=== PATIENT | female | born 1985 | race African-American/Black ===

== ENCOUNTER 2019-09-24 17:01 | Emergency (ER) | payer SELFPAY ==
[2019-09-24 17:06] VITALS: BP 139/88
[2019-09-24] MEDS ORDERED: ACETAMINOPHEN 325 MG TABLET PO ONE (17:30)
--- NOTE | 2019-09-24 17:30 | ER Document Report ---
HPI - HPI Time Seen by Provider: 09/24/19 17:19 Pain Level: 4 Context: Patient is a 33-year-old female who presents the emergency department with a chief complaint of right thigh pain. Patient reports this morning while she was getting ready for work and walking around her house she developed right thigh pain. Patient reports it feels like it is deep within and it feels like something needs to pop. Patient reports she did not fall or injure herself. Patient denies a history of blood clots. Patient denies swelling to the right thigh, redness to the thigh or any other abnormality. Patient states she did go to work and has been standing on her feet all day which does seem to make the pain worse. Patient denies back pain, loss of bowel or bladder or numbness or tingling to lower extremities. Past Medical History - General Information source: Patient - Social History Smoking Status: Current Every Day Smoker Chew tobacco use (# tins/day): No Frequency of alcohol use: Social Drug Abuse: None Lives with: Family Family History: None Patient has suicidal ideation: No Patient has homicidal ideation: No - Past Medical History Cardiac Medical History: Reports: None Pulmonary Medical History: Reports: None EENT Medical History: Reports: None Neurological Medical History: Reports: None Endocrine Medical History: Reports: None Renal/ Medical History: Reports: None Malignancy Medical History: Reports: None GI Medical History: Reports: None Musculoskeletal Medical History: Reports None Skin Medical History: Reports None Psychiatric Medical History: Reports: None Traumatic Medical History: Reports: None Infectious Medical History: Reports: None Surgical Hx: Negative Vertical Provider Document - CONSTITUTIONAL Agree With Documented VS: Yes Exam Limitations: No Limitations General Appearance: No Apparent Distress - HEENT HEENT: Atraumatic, Normal ENT Exam, Normocephalic, PERRLA - NECK Neck: Normal Inspection - RESPIRATORY Respiratory: Breath Sounds Normal, No Respiratory Distress - CARDIOVASCULAR Cardiovascular: Regular Rate, Regular Rhythm - GI/ABDOMEN Gastrointestinal: Abdomen Soft, Abdomen Non-Tender, Normal Bowel Sounds - MUSCULOSKELETAL/EXTREMETIES Notes: Patient was brought into a private room and undressed in a gown for appropriate physical examination. Patient does not have any point tenderness to the right hip, right thigh, right knee or right lower leg. There is no ecchymosis, edema, erythema noted to the right thigh when compared to the left thigh. There is no open wound. - NEURO Level of Consciousness: Awake, Alert, Appropriate - DERM Integumentary: Warm, Dry, No Rash Course - Re-evaluation Re-evalutation: 09/24/19 17:30 Patient to be brought back to a room for evaluation of her lower extremities. 09/24/19 18:01 Patient's physical examination was reassuring. Patient did not have any significant swelling, erythema or ecchymosis noted to the right thigh. Patient continues to deny trauma or fall. Patient reports the only thing she can say is that she has had similar pain when she was diagnosed with sciatica when she was . Patient reports today she has not taken anything for her discomfort. Patient does have the Mirena implanted that is greater than 5 years old but denies recent car rides surgeries or significant risk factors for blood clot. I did inform the patient that this time I do not believe a venous Doppler or x-ray is necessary. Patient in agreement with discharge plan. We will give the patient anti-inflammatories as well as a muscle relaxer. Patient given strict return precautions. - Vital Signs Vital signs: Temp Pulse Resp BP Pulse Ox 98.5 F 81 18 139/88 H 98 09/24/19 17:18 09/24/19 17:05 09/24/19 17:18 09/24/19 17:05 09/24/19 17:18 Discharge - Discharge Clinical Impression: Right leg pain Condition: Stable Disposition: HOME, SELF-CARE Additional Instructions: *Today you are seen in the emergency department for right upper leg pain. Your physical exam was reassuring and at this time I do not believe you require any imaging such as a venous Doppler to rule out blood clot or an x-ray. Please rest the leg, use anti-inflammatory medication such as ibuprofen. If the pain involves a small area heating pad may help. Please rest over the next 48 hours. Please return to the emergency department if your leg becomes swollen, weak, discolored or increasingly painful or if you do have any new or worsening symptoms. You are being prescribed an oral muscle relaxer. Do not drive or operate heavy machinery while on this medication as it can make you drowsy. Leg Pain, Nonspecific We did not find an obvious cause for your leg pain. There's no sign of blood clot, infection, or other serious disease. Possible causes of vague leg pain include muscle or joint inflammation, disc disease in the lower back, pressure on the nerves in the back, or reduced blood flow through the arteries of the leg. Rest the leg. Pain can be eased with an antiinflammatory pain medicine such as ibuprofen. If the pain involves a small area, a heating pad might help. Call the doctor or return if the leg becomes swollen, weak, discolored, or increasingly painful, or if you develop any other significant change in your health. Prescriptions: Ibuprofen [Motrin 800 mg Tablet] 800 mg PO Q8H PRN #30 tab PRN Reason: Methocarbamol [Robaxin 500 mg Tablet] 1,000 mg PO TID PRN #15 tablet PRN Reason: Forms: Return to Work
[2019-09-24] MEDS ORDERED: METHOCARBAMOL 500 MG TABLET PO ONE (18:04)
== END 2019-09-24 18:16 | disposition home or self-care (01) ==
LOC: ER 17:01
DX: M79.651 Pain in right thigh (principal); F17.200 Nicotine dependence, unspecified, uncomplicated
CPT/HCPCS: 99283